=== PATIENT | female | born 1945 | race African-American/Black ===

== ENCOUNTER 2019-01-13 09:01 | Emergency (ER) | payer BC, OTHER ==
[~2019-01-13] VITALS: Ht 144.8 cm; Wt 75.0 kg
[2019-01-13] MEDS ORDERED: KETOROLAC 60MG/2ML VIAL IM ONE (09:45)
[2019-01-13 11:10] VITALS: BP 155/66
== END 2019-01-13 11:20 | disposition home or self-care (01) ==
LOC: ER 09:01
DX: S30.0XXA Contusion of lower back and pelvis, initial encounter (principal); S50.02XA Contusion of left elbow, initial encounter; I10 Essential (primary) hypertension; W01.0XXA Fall on same level from slipping, tripping and stumbling without subsequent striking against object, initial encounter; Y93.89 Activity, other specified; Y92.9 Unspecified place or not applicable; Z85.9 Personal history of malignant neoplasm, unspecified
CPT/HCPCS: 72100; 73070; 96372; 99283; J1885

== ENCOUNTER 2021-12-05 16:57 | Emergency (ER) | payer BC ==
[~2021-12-05] VITALS: Ht 144.8 cm; Wt 71.0 kg
[2021-12-05] MEDS ORDERED: KETOROLAC 30MG/ML VIAL IV STA (18:32)
[2021-12-05] MEDS ORDERED: SODIUM CHLORIDE 0.9% 1,000 ML IV ONE (18:45)
[2021-12-05 20:29] LABS: BASOPHILS % 0.5 % (0.0-2.0); EOSINOPHILS % 1.1 % (0.0-5.0); HEMATOCRIT. 32.3 % (36.0-48.0); HEMOGLOBIN. 10.9 g/dL (12.0-16.0); MEAN CORPUSCULAR HEMOGLOBIN 29.8 pg (28.0-32.0); MEAN PLATELET VOLUME 7.7 fl (7.4-10.4); MONOCYTES % 6.8 % (2.0-8.0); NEUTROPHILS % 58.6 % (40.0-76.0); PLATELET 353 x1000/uL (130-400); RED BLOOD CELL COUNT 3.67 mill/uL (4.2-5.4); RED CELL DISTRIBUTION WIDTH 14.4 % (11.6-14.6)
[2021-12-05 20:36] LABS: CHLORIDE 101 mEq/L (98-107)
[2021-12-05] MEDS ORDERED: POTASSIUM CHLORIDE 20MEQ TABLET SR PO ONE (22:00)
[2021-12-05 23:07] VITALS: BP 130/66
== END 2021-12-05 23:10 | disposition home or self-care (01) ==
LOC: ER 16:57
DX: R20.2 Paresthesia of skin (principal); R51.9 Headache, unspecified; R10.9 Unspecified abdominal pain; E87.6 Hypokalemia; I10 Essential (primary) hypertension; Z85.3 Personal history of malignant neoplasm of breast; Z88.0 Allergy status to penicillin; Z90.10 Acquired absence of unspecified breast and nipple
CPT/HCPCS: 36415; 70450; 71045; 80053; 83880; 84484; 85025; 93005; 96361; 96374; 99285; J1885; J7030